=== PATIENT | female | born 1990 | race Caucasian/White ===

== ENCOUNTER 2016-11-16 12:49 | Emergency (ER) | payer OTHER ==
--- NOTE | 2016-11-16 13:09 | PDOC ---
History of Present Illness <Alissa Son - Last Filed: 11/16/16 14:45> - History of Present Illness Initial Comments: 11/16/16 14:51 Patient is a 26 year old female, LNMP: 10/10/16, with no significant medical hx , who is presenting to the ED with three days of intermittent pelvic pain. The patient complains of intermittent bilateral pelvic pain that is mild to moderate in severity. Patient notes she took some motrin with pain relief. She denies having her menses at this time. The patient states she began having irregular menses since her miscarriage (02/16/16). Patient's last visit with a reducing machine operator was last year. Denies vaginal discharge, abnormal BMs, heavy lifting, or strenuous activity. /A2 <Teresita Castro - Last Filed: 11/16/16 14:58> - General Chief Complaint: Pain, Acute Stated Complaint: PAIN BILAT ABD Time Seen by Provider: 11/16/16 12:57 Past History - Past Medical History Anemia: No Asthma: No Cancer: No Cardiac Disorders: No CVA: No COPD: No CHF: No DVT: No Dementia: No Diabetes: No Dialysis: No GI Disorders: No Disorders: No HTN: No Hypercholesterolemia: No HIV: No Kidney Stones: No Liver Disease: No Psychiatric Problems: No Seizures: No Thyroid Disease: No Lung CA: No - Reproductive History (#): 3 Para: 1 Therapeutic (s) & number: Yes (ELECTIVE.) - Immunization History Immunization Up to Date: Yes - Psycho/Social/Smoking Cessation Hx Anxiety: Yes Suicidal Ideation: No Smoking History: Never smoked Have you smoked in the past 12 months: No Hx Alcohol Use: Yes (OCCASIONALLY) Drug/Substance Use Hx: No Substance Use Type: None Hx Substance Use Treatment: No <Alissa Son - Last Filed: 11/16/16 14:45> <Teresita Castro - Last Filed: 11/16/16 14:58> - Past Medical History Allergies/Adverse Reactions: Allergies Allergy/AdvReac Type Severity Reaction Status Date / Time No Known Allergies Allergy Verified 03/07/16 18:23 Home Medications: Ambulatory Orders Ibuprofen [Motrin -] 600 mg PO QID 11/16/16 Naproxen [Naprosyn -] 500 mg PO BID 11/16/16 Review of Systems - Review of Systems Comments:: 11/16/16 14:56 CONSTITUTIONAL: Absent: fever, chills, diaphoresis, generalized weakness, malaise, loss of appetite HEENT: Absent: rhinorrhea, nasal congestion, throat pain, throat swelling, difficulty swallowing, mouth swelling, ear pain, eye pain, visual changes CARDIOVASCULAR: Absent: chest pain, syncope, palpitations, irregular heart rate, lightheadedness , peripheral edema RESPIRATORY: Absent: cough, shortness of breath, dyspnea with exertion, orthopnea, wheezing, stridor, hemoptysis GASTROINTESTINAL: Present: bilateral pelvic pain Absent: abdominal distension, nausea, vomiting, diarrhea, constipation, melena, hematochezia GENITOURINARY: Absent: dysuria, frequency, urgency, hesitancy, hematuria, flank pain, genital pain MUSCULOSKELETAL: Absent: myalgia, arthralgia, joint swelling SKIN: Absent: rash, itching, pallor HEMATOLOGIC/IMMUNOLOGIC: Absent: easy bleeding, easy bruising, lymphadenopathy, frequent infections ENDOCRINE: Absent: unexplained weight gain, unexplained weight loss, heat intolerance, cold intolerance NEUROLOGIC: Absent: headache, focal weakness or paresthesia, dizziness, unsteady gait, seizure, mental status changes, bladder or bowel incontinence. PSYCHIATRIC: Absent: anxiety, depression, suicidal or homicidal ideation, hallucinations <Teresita Castro - Last Filed: 11/16/16 14:58> *Physical Exam - Vital Signs Last Vital Signs Temp Pulse Resp BP Pulse Ox 97.2 F L 68 16 109/70 100 11/16/16 14:02 11/16/16 14:02 11/16/16 14:02 11/16/16 14:02 11/16/16 14:02 - Physical Exam Comments: 11/16/16 14:57 GENERAL: Well developed, well nourished. Awake and alert. No acute distress. HEENT: Normocephalic, atraumatic. PERRLA, EOMI. No conjunctival pallor. Sclera are non- icteric. Moist mucous membranes. Oropharynx is clear. NECK: Supple. Full ROM. No JVD. Carotid pulses 2+ and symmetric, without bruits. No thyromegaly. No lymphadenopathy. CARDIOVASCULAR: Regular rate and rhythm. No murmurs, rubs, or gallops. Distal pulses are 2+ and symmetric. PULMONARY: No evidence of respiratory distress. Lungs clear to auscultation bilaterally. No wheezing, rales or rhonchi. ABDOMINAL: Soft. Bilateral pelvic tenderness to palpation. Non-distended. No rebound or guarding. No organomegaly. Normoactive bowel sounds. MUSCULOSKELETAL: Normal range of motion at all joints. No bony deformities or tenderness. No CVA tenderness. EXTREMITIES: No cyanosis. No clubbing. No edema. No calf tenderness. SKIN: Warm and dry. Normal capillary refill. No rashes. No jaundice. NEUROLOGICAL: Alert, awake, appropriate. Cranial nerves 2-12 intact. Normal speech. Gait is normal without ataxia. PSYCHIATRIC: Anxious. Cooperative. Good eye contact. <Teresita Castro - Last Filed: 11/16/16 14:58> ED Treatment Course - ADDITIONAL ORDERS Additional order review: Laboratory Results 11/16/16 13:12 Urine HCG, Qual Negative <Teresita Castro - Last Filed: 11/16/16 14:58> *DC/Admit/Observation/Transfer - Discharge Dispostion Admit: No <Alissa Son - Last Filed: 11/16/16 14:45> - Attestations Scribe Attestion: 11/16/16 14:58 Documentation prepared by Teresita Castro, acting as special forces medical sergeant for Alissa Son MD. <Teresita Castro - Last Filed: 11/16/16 14:58> Diagnosis at time of Disposition: Pelvic pain - Discharge Dispostion Disposition: HOME Condition at time of disposition: Stable - Patient Instructions Printed Discharge Instructions: DI for Pelvic Pain Additional Instructions: Check with your reducing machine operator on Sunday as scheduled
[2016-11-16 14:06] VITALS: BP 109/70; PULSE 68; TEMP 97.2; BMI 19.3
== END 2016-11-16 15:04 | disposition home or self-care (01) ==
LOC: FER 12:49
DX: R10.2 Pelvic and perineal pain (principal)
CPT/HCPCS: 84703; 99282-25

== ENCOUNTER 2016-11-24 20:54 | Emergency (ER) | payer OTHER ==
[2016-11-24 21:08] VITALS: BP 113/75; PULSE 80; TEMP 98.4; BMI 19.8
[2016-11-24] MEDS ORDERED: BACITRACIN 30 GM TUBE TOPICAL OINTMENT TP ONE (21:35)
[2016-11-24] MEDS ORDERED: CEPHALEXIN MONOHYDRATE 500 MG CAPSULE (UD) PO ONE (21:35)
[2016-11-24] MEDS ORDERED: TETANUS AND DIPHTHERIA TOXOID 0.5 ML DISP.SYRIN IM ONE (21:36)
--- NOTE | 2016-11-24 21:41 | PDOC ---
History of Present Illness - General Chief Complaint: Laceration Stated Complaint: RT HAND LACERATION Time Seen by Provider: 11/24/16 21:26 History Source: Patient Exam Limitations: No Limitations - History of Present Illness Initial Comments: 11/24/16 21:37 26yo Female patient presents to ED c/o right thumb injury sustain while working. 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 She denies any other complaints at this time. Report tetanus status unknown. LNMP: Nov 17. Timing/Duration: reports: just prior to arrival Severity: Yes: mild Location: reports: hands (Right thumb) Respiratory Risk Factors: denies: no cause identified, exposure to illness, exposure to allergen, foods, insect bite, insect sting, medications, pollen, soaps, other Modifying Factors: worse with: antihistamine, calamine lotion, prednisone, scratching, topical steriods, other Associated Symptoms: denies: denies symptoms, blisters, change in skin texture, edema, fever, flushing, headache, hives, jaundice, malaise, nasal congestion, numbness, pallor, paresthesia, petechiae, rash, sore throat, swelling/mass/lumps , tingling, other Past History - Travel Traveled outside of the country in the last 30 days: No Close contact w/someone who was outside of country & ill: No - Past Medical History Allergies/Adverse Reactions: Allergies Allergy/AdvReac Type Severity Reaction Status Date / Time No Known Allergies Allergy Verified 11/24/16 21:03 Home Medications: Ambulatory Orders Cephalexin [Keflex] 500 mg PO BID #10 capsule 11/24/16 Tramadol HCl 50 mg PO Q6H PRN #8 tablet MDD 4 tabs 11/24/16 Anemia: No Asthma: No Cancer: No Cardiac Disorders: No CVA: No COPD: No CHF: No DVT: No Dementia: No Diabetes: No Dialysis: No GI Disorders: No Disorders: No HTN: No Hypercholesterolemia: No HIV: No Kidney Stones: No Liver Disease: No Psychiatric Problems: No Seizures: No Thyroid Disease: No Lung CA: No - Reproductive History (#): 3 Para: 1 Therapeutic (s) & number: Yes (ELECTIVE.) - Immunization History Immunization Up to Date: Yes - Psycho/Social/Smoking Cessation Hx Anxiety: Yes Suicidal Ideation: No Smoking History: Never smoked Have you smoked in the past 12 months: No Hx Alcohol Use: Yes (OCCASIONALLY) Drug/Substance Use Hx: No Substance Use Type: None Hx Substance Use Treatment: No Review of Systems - Review of Systems Able to Perform ROS?: Yes Is the patient limited Mohawk proficient: No Constitutional: No: Chills, Fever, Weakness HEENTM: No: Blurred Vision, Double Vision, Throat Pain, Difficulty Swallowing Respiratory: No: Cough, Orthopnea, Shortness of Breath, Stridor, Wheezing Cardiac (ROS): No: Chest Pain, Edema, Palpitations ABD/GI: No: Diarrhea, Nausea, Poor Appetite, Poor Fluid Intake, Vomiting Musculoskeletal: No: Back Pain Integumentary: Yes: See HPI, Other (Laceration). No: Erythema, Rash All Other Systems: Reviewed and Negative *Physical Exam - Vital Signs Last Vital Signs Temp Pulse Resp BP Pulse Ox 98.4 F 80 16 113/75 100 11/24/16 21:04 11/24/16 21:04 11/24/16 21:04 11/24/16 21:04 11/24/16 21:04 - Physical Exam General Appearance: Yes: Nourished, Appropriately Dressed. No: Apparent Distress, Mild Distress, Moderate Distress, Severe Distress Neck: positive: Trachea midline, Normal Thyroid, Supple. negative: Stridor, Lymphadenopathy (R), Lymphadenopathy (L) Respiratory/Chest: positive: Lungs Clear, Normal Breath Sounds. negative: Respiratory Distress, Labored Respiration, Rapid RR Cardiovascular: positive: Regular Rhythm, Regular Rate. negative: Edema, JVD, Murmur Gastrointestinal/Abdominal: positive: Normal Bowel Sounds, Soft. negative: Guarding, Rebound, Tenderness Lymphatic: negative: Adenopathy Musculoskeletal: positive: Normal Inspection. negative: CVA Tenderness Extremity: positive: Normal Capillary Refill, Normal Inspection, Normal Range of Motion, Tender (Right Thumb), Other (Skin avulsion of right thumb. No active bleeding.) Integumentary: positive: Normal Color, Dry, Warm Neurologic: positive: manager vehicle II-XII NML intact, Fully Oriented, Alert, Normal Mood/ Affect, Normal Response, Motor Strength 5/5 *DC/Admit/Observation/Transfer Diagnosis at time of Disposition: Avulsion of skin of finger Qualifiers: Encounter type: initial encounter Qualified Code(s): S61.209A - Unspecified open wound of unspecified finger without damage to nail, initial encounter - Discharge Dispostion Disposition: HOME Condition at time of disposition: Good Admit: No - Prescriptions Prescriptions: Cephalexin [Keflex] 500 mg PO BID #10 capsule Tramadol HCl 50 mg PO Q6H PRN #8 tablet MDD 4 tabs PRN Reason: Severe Pain - Patient Instructions Printed Discharge Instructions: DI for Avulsion Laceration (Not Requiring Sutures) Additional Instructions: DRESSING CHANGES DAILY, MAY WASH WITH SOAP AND WATER. KEEP AREA CLEAN, DRY AND COVERED X 4 DAYS, THEN LEAVE OPEN TO AIR WHEN NOT WORKING. WHILE WORKING KEEP HAND COVERED WITH GLOVE DISCUSSED. TRAMADOL FOR PAIN NOT RELIEVED BY TYLENOL OR MOTRIN. DO NOT DRIVE, DRINK ALCOHOL, OR OPERATE HEAVY MACHINERY WHILE TAKING TRAMADOL. KEFLEX X5 DAYS ANTIBIOTIC. RETURN IF ANY CONCERNS FOR FURTHER EVALUATION. Print Language: IRANIAN - Post Discharge Activity Work/School Note: Back to Work
[2016-11-24] MEDS ORDERED: CEPHALEXIN MONOHYDRATE 250 MG CAPSULE (FP) ONE (22:01)
[2016-11-24] MEDS ORDERED: BACITRACIN 0.9 GM PACKET ONE (22:02)
== END 2016-11-24 22:23 | disposition home or self-care (01) ==
LOC: JER 20:54
PROC: 3E0234Z Introduction of Serum, Toxoid and Vaccine into Muscle, Percutaneous Approach (ICD-10-PCS; principal; 2016-11-24)
DX: S61.011A Laceration without foreign body of right thumb without damage to nail, initial encounter (principal); W26.0XXA Contact with knife, initial encounter; Y93.G1 Activity, food preparation and clean up; Y92.511 Restaurant or cafe as the place of occurrence of the external cause; Y99.0 Civilian activity done for income or pay
CPT/HCPCS: 90471; 90715; 99282-25

== ENCOUNTER 2024-08-25 15:57 | Emergency (ER) | payer OTHER ==
[2024-08-25 16:08] VITALS: BP 101/66; PULSE 75; RESP 16; TEMP 98.6; BMI 21.2
[2024-08-25] MEDS ORDERED: ACETAMINOPHEN 500 MG TABLET (FP) ONE (16:57)
[2024-08-25] MEDS: ACETAMINOPHEN 500 MG TABLET (FP) PO ONE (17:06)
== END 2024-08-25 18:51 | disposition home or self-care (01) ==
LOC: JERFT 15:57
DX: S00.83XA Contusion of other part of head, initial encounter (principal); Y04.8XXA Assault by other bodily force, initial encounter
CPT/HCPCS: 70450-TC; 71046-TC-FY; 71111-TC-FY; 72125-TC; 99284-25